=== PATIENT | male | born 1940 | race Caucasian/White ===

== ENCOUNTER 2017-12-20 06:55 | Day surgery (SDC) | payer OTHER ==
[~2017-12-20] VITALS: Ht 165.1 cm; Wt 72.6 kg
[~2017-12-20 06:55] MED LIST: ASPIR 8181 MG PO; FLO4 PO; HYDROCHLOROTHIA25 MG PO; LIPI10 PO; METFORMIN500 M1 PO; NORCO1 TA2 PO; XARELTO10 M1 PO; XARELTO20 M1 PO; ZESTRIL20 MG PO
[2017-12-20 07:27] VITALS: BP 147/73
[2017-12-20 08:33] VITALS: BP 147/73
[2017-12-20 12:46] VITALS: BP 123/70
== END 2017-12-20 11:30 | disposition home or self-care (01) ==
LOC: DS 06:55 → OR 09:00 → DS 11:30
PROVIDERS: Family Medicine
PROC: B24BZZ4 Ultrasonography of Heart with Aorta, Transesophageal (ICD-10-PCS; principal; 2017-12-20 09:00)
DX: I35.8 Other nonrheumatic aortic valve disorders (principal); I34.0 Nonrheumatic mitral (valve) insufficiency; I10 Essential (primary) hypertension; E11.9 Type 2 diabetes mellitus without complications; M32.9 Systemic lupus erythematosus, unspecified; M19.90 Unspecified osteoarthritis, unspecified site; Z86.718 Personal history of other venous thrombosis and embolism; Z68.22 Body mass index [BMI] 22.0-22.9, adult
CPT/HCPCS: J2250; J3010